=== PATIENT | female | born 1960 | race Caucasian/White ===

== ENCOUNTER 2017-11-28 09:55 | Day surgery (SDC) | payer BC ==
[2017-11-28] MEDS ORDERED: MIDAZOLAM 1 MG/ML 2 ML INJ ×3 (11:56)
[2017-11-28] MEDS ORDERED: FENTAnyl 50 MCG/ML VIAL (11:56)
== END 2017-11-28 13:53 | disposition home or self-care (01) ==
LOC: GIL 09:55
DX: Z86.010 Personal history of colon polyps (principal); K64.4 Residual hemorrhoidal skin tags
CPT/HCPCS: 45378